=== PATIENT | female | born 1995 | race Caucasian/White ===

== ENCOUNTER 2023-06-07 16:46 | Outpatient (CLI) | payer OTHER, SELFPAY ==
--- NOTE | 2023-06-07 17:00 | US_ITS ---
Patient: APRIL EARL Facility:?[facility] R[facility] Patient ID:?[id number] Site Patient ID:?[id number]. Site :?1995 Study:?US-OB Pelvis DATING AND VIABILITY-06/07/2023 5:34:36 PM Ordering Physician:?YAKOV MUSTAFA Final Report: INDICATION: . TECHNIQUE: Ultrasound OB pelvis transvaginal. Real-time scales-scale, color flow and duplex Doppler imaging of the pelvis was performed. COMPARISON: None. FINDINGS: Uterus: Measures approximally 6 by 2 by 3 centimeters and is without cysts or masses. Cervix: Partially visualized, long and closed. Endometrium: 6 millimeter gestational sac is present. No pole is identified. Ovaries: The right ovary measures 4.1 x 3.3 x 3.8 centimeters. Simple cyst within the right ovary measures up to 3.8 centimeters. There is appropriate color flow and venous duplex Doppler waveforms to the right ovary. The left ovary measures 2.9 x 1.2 x 2.1 centimeters. There is appropriate color flow the left ovary. Free fluid: None. IMPRESSION: Intrauterine of approximately 5 weeks` gestation, viability is not confirmed. Recommend serial quantitative HCGs and follow-up pelvic ultrasound in 10-14 days. Dictated by Duane Singh MD @ 06/07/2023 6:17:47 PM Signed by:?Duane Singh MD @06/07/2023 6:17:47 PM (Electronic Signature)
== END 2023-06-07 16:47 | disposition home or self-care (01) ==
PROVIDERS: Visit Provider Physician Assistant
DX: Z34.91 Encounter for supervision of normal pregnancy, unspecified, first trimester (principal); Z3A.01 Less than 8 weeks gestation of pregnancy
CPT/HCPCS: 76817; 84702; 86850; 86900; 86901; 93976

== ENCOUNTER 2023-06-09 15:53 | Outpatient (CLI) | payer OTHER, SELFPAY | END 2023-06-09 15:54 | disposition home or self-care (01) | LOC: NFLDREF 06-24 13:35 | PROVIDERS: Visit Provider Physician Assistant | DX: Z34.90 Encounter for supervision of normal pregnancy, unspecified, unspecified trimester (principal) | CPT/HCPCS: 84702 ==

== ENCOUNTER 2023-06-22 12:06 | Outpatient (CLI) | payer OTHER, SELFPAY ==
--- NOTE | 2023-06-22 12:15 | US_ITS ---
Patient: APRIL EARL Facility:?[facility] R[facility] Patient ID:?[id number] Site Patient ID:?[id number]. Site :?1995 Study:?US-OB Pelvis OB TV-06/22/2023 12:42:30 PM Ordering Physician:MARIE JULY Final Report: INDICATION: Bleeding in early COMPARISON: 06/07/2023 TECHNIQUE: Real-time scales-scale imaging of the pelvis was performed. FINDINGS: Intrauterine gestational sac measures 8.7 millimeters, 5 weeks 5 days, not significantly changed. No pole or yolk sac. No subchorionic hemorrhage. Left ovary is normal in size. Simple right ovarian cyst again noted measuring 3.7 x 2.4 x 3.2 cm, previously measuring 3.8 cm. No ectopic . No pelvic free fluid. Uterus measures 7.2 cm in length and 3.1 x 4.3 cm in transverse dimensions. IMPRESSION: Intrauterine gestational sac is unchanged. No pole or yolk sac, consistent with blighted ovum/nonviable . Dictated by Gage Mondragon MD @ 06/23/2023 6:28:33 AM Signed by:?Gage Mondragon MD @06/23/2023 6:28:33 AM (Electronic Signature)
== END 2023-06-22 12:07 | disposition home or self-care (01) ==
LOC: US 12:07
PROVIDERS: Visit Provider Physician Assistant
DX: O20.9 Hemorrhage in early pregnancy, unspecified (principal); Z3A.01 Less than 8 weeks gestation of pregnancy
CPT/HCPCS: 76817

== ENCOUNTER 2023-07-06 09:22 | Outpatient (CLI) | payer OTHER, SELFPAY ==
--- NOTE | 2023-07-06 09:45 | US_ITS ---
Patient: APRIL EARL Facility:?[facility] Patient ID:?[id number] Site Patient ID:?[id number]. Site :?1995 Study:?US-Pelvis TV-07/06/2023 10:04:46 AM Ordering Physician:ELIHSA Final Report: INDICATION: Followup missed 2 weeks ago. TECHNIQUE: Transvaginal pelvic ultrasound. COMPARISON: 06/22/2023. FINDINGS: Uterus is anteverted and measures 7.4 x 3.0 x 3.6 cm. Endometrium is mildly heterogeneous. Minimal endometrial fluid. Normal endometrial stripe thickness of 5 mm. No evidence for retained products of conception. Both ovaries appear normal with normal color Doppler flow. No adnexal mass or free fluid. IMPRESSION: No sonographic evidence for retained products of conception. Dictated by Rafa Ramos MD @ 07/06/2023 12:19:10 PM Signed by:?Rafa Ramos MD @07/06/2023 12:19:10 PM (Electronic Signature)
== END 2023-07-06 09:23 | disposition home or self-care (01) ==
LOC: US 09:22
PROVIDERS: Visit Provider Obstetrics & Gynecology
DX: O02.1 Missed abortion (principal)
CPT/HCPCS: 76830

== ENCOUNTER 2023-07-06 10:21 | Outpatient (CLI) | payer OTHER, SELFPAY | END 2023-07-06 10:22 | disposition home or self-care (01) | LOC: NFLDREF 10:22 | PROVIDERS: Visit Provider Obstetrics & Gynecology | DX: O02.0 Blighted ovum and nonhydatidiform mole (principal) | CPT/HCPCS: 84702 ==

== ENCOUNTER 2023-07-13 09:25 | Outpatient (CLI) | payer OTHER, SELFPAY | END 2023-07-13 09:26 | disposition home or self-care (01) | LOC: NFLDREF 07-14 06:32 | PROVIDERS: PCP Obstetrics & Gynecology; Referring Provider Obstetrics & Gynecology; Visit Provider Obstetrics & Gynecology | DX: O02.0 Blighted ovum and nonhydatidiform mole (principal) | CPT/HCPCS: 84702 ==

== ENCOUNTER 2023-12-27 14:48 | Outpatient (CLI) | payer OTHER, SELFPAY ==
--- NOTE | 2023-12-27 15:00 | CRLHL7_ITS ---
For Patients: As a result of the Century Cures Act, medical imaging exams and procedure reports are released immediately into your electronic medical record. You may view this report before your referring provider. If you have questions, please contact your health care provider. INDICATION: First trimester scan, establish dates. COMPARISON: None. TECHNIQUE: Real-time scales-scale imaging of the pelvis was performed. FINDINGS: Sonographic imaging demonstrates a single living intrauterine gestation. The embryo demonstrates a regular cardiac rate measuring 178 beats per minute. The embryo`s crown-rump length measurement of 1.8 cm corresponds to a gestational age of 8 weeks 1 day with a sonographic due date of 08/06/2024. There is a normal-appearing yolk sac. There are no gross abnormalities noted within the embryo at this early state of development. The gestational sac has a normal appearance. There is no evidence of a perigestational hemorrhage. The amount of fluid within the sac appears appropriate for gestational age. The cervix is closed. The myometrium appears normal. The ovaries are of normal size. Corpus luteal cyst right ovary. There are no suspicious fluid collections noted in the cul-de-sac. IMPRESSION: Normal first trimester OB ultrasound exam. Gestational age calculated at 8 weeks 1 day with a sonographic due date of 08/06/2024. Dictated by Gage Mondragon MD @ 12/28/2023 12:05:05 PM (Electronically Signed)
== END 2023-12-27 14:49 | disposition home or self-care (01) ==
LOC: US 14:49
PROVIDERS: Visit Provider Physician Assistant
DX: Z34.91 Encounter for supervision of normal pregnancy, unspecified, first trimester (principal); Z3A.08 8 weeks gestation of pregnancy
CPT/HCPCS: 76817; 86592; 86703; 86704; 86706; 86762; 86787; 86803; 86850; 86900; 86901; 87086; 87340; 87491; 87591

== ENCOUNTER 2024-02-21 13:53 | Outpatient (CLI) | payer OTHER, SELFPAY | END 2024-02-21 13:54 | disposition home or self-care (01) | LOC: NFLDREF 13:57 | PROVIDERS: Visit Provider Obstetrics & Gynecology | DX: Z34.92 Encounter for supervision of normal pregnancy, unspecified, second trimester (principal); Z3A.16 16 weeks gestation of pregnancy | CPT/HCPCS: 81511 ==

== ENCOUNTER 2024-03-19 13:56 | Outpatient (CLI) | payer OTHER, SELFPAY ==
--- NOTE | 2024-03-19 14:00 | CRLHL7_ITS ---
For Patients: As a result of the Century Cures Act, medical imaging exams and procedure reports are released immediately into your electronic medical record. You may view this report before your referring provider. If you have questions, please contact your health care provider. INDICATION: 2nd trimester anatomical survey. TECHNIQUE: Ultrasound OB pelvis transabdominal. Real-time scales-scale imaging of the fetus was performed as well as color Doppler analysis of the umbilical artery. COMPARISON: None FINDINGS: Intrauterine gestation: Single. heart rate: Regular, 127 bpm. presentation: Cephalic. Placenta: Bilobed placenta with dominant posterior lobe and diminutive anterior lobe. There is a suspected vascular connection between the two lobes. Cord inserts into the anterior lobe. No evidence of previa Cervix: Closed measuring 4.3 cm Amniotic fluid: 4.3 cm deepest pocket. Biometry: Biparietal diameter: 4.5 cm, compatible with 19 weeks 4 days. Head circumference: 17.2 cm, compatible with 19 weeks 5 days. Abdominal circumference: 15.2 cm, compatible with 20 weeks 3 days. Femoral length: 3.1 cm, compatible with 19 weeks 5 days. EFW: 328.8 gm, 25.5 %. Estimated age by ultrasound: 20 weeks 0 days Estimated MARIA L by ultrasound: 09/05/2024 Anatomical Survey: 4 chamber heart: Visualized. Limited assessment of three-vessel trachea view. Stomach: Visualized. Kidneys: Visualized. Bladder: Visualized. Spine: Limited transverse view of the cervical spine. Otherwise no spinal abnormality is appreciated. Sacrum: Visualized. 4 extremities: Visualized. Cord insertion: Visualized. 3V cord: Visualized. Face: Visualized. Nose: Visualized. Lips: Visualized. Cerebellum: Visualized. Cisterna Magna: Visualized. Lateral ventricles: Visualized. IMPRESSION: 1. Single viable intrauterine measuring 328.8 grams in the 25.5th percentile. Estimated age by ultrasound is 20 weeks 0 days and MARIA L by ultrasound is 09/05/2024 2. Bilobed placenta with dominant posterior lobe and diminutive anterior lobe. There is a suspected vascular connection between the two lobes. Cord inserts into the anterior lobe. 3. Limited assessment of the transverse cervical spine and three-vessel trachea view. Otherwise, no intrinsic abnormalities noted on anatomic survey. Dictated by Dia Interiano MD @ 03/20/2024 11:30:03 AM (Electronically Signed)
== END 2024-03-19 13:57 | disposition home or self-care (01) ==
LOC: US 13:57
PROVIDERS: Visit Provider Obstetrics & Gynecology
DX: Z34.92 Encounter for supervision of normal pregnancy, unspecified, second trimester (principal); Z3A.20 20 weeks gestation of pregnancy
CPT/HCPCS: 76805

== ENCOUNTER 2024-05-14 11:01 | Outpatient (CLI) | payer OTHER, SELFPAY | END 2024-05-14 11:02 | disposition home or self-care (01) | LOC: NFLDREF 05-16 09:12 | PROVIDERS: Visit Provider Obstetrics & Gynecology | DX: Z34.93 Encounter for supervision of normal pregnancy, unspecified, third trimester (principal); Z3A.28 28 weeks gestation of pregnancy | CPT/HCPCS: 86592 ==

== ENCOUNTER 2024-06-14 17:08 | Outpatient (CLI) | payer OTHER, SELFPAY ==
[2024-06-14 17:16] VITALS: PULSE 85; O2SAT 98
[2024-06-14 17:21] VITALS: PULSE 75; O2SAT 98
[2024-06-14 17:25] VITALS: BP 112/70; PULSE 73; TEMP 36.7
--- NOTE | 2024-06-14 19:53 | PC.OBNST ---
NST Note NST Note Start: 06/14/24 17:17 Freq: ONCE Status: Active Protocol: Document 06/14/24 19:18 FJZ (Rec: 06/14/24 19:52 FJZ [id number]) NST Note 2 Para (# of births) 0 EDC 08/03/24 Gestational Age In Weeks & Days 32 Weeks & 6 Days Patient Presented with Complaint(s) of Observation after an injury If Observation after an injury, describe Pt stated her 60lb dog jumped off her belly around 5:00pm. Reactive Yes RN Walt Suarez RN Date 06/14/24 Reactive Yes JORDAN Farfan RN Date 06/14/24 OB NST charge Yes Complete NST Note via Write Note Yes The provider's electronic signature indicates the NST is reactive/appropriate for gestational age. *Note to provider: If an addendum is required, open the patient's chart and click on the note under the Nurse/Allied Health tab.
== END 2024-06-14 19:18 | disposition home or self-care (01) ==
LOC: OB OUT 17:10 → OB 17:10
PROVIDERS: Visit Provider Obstetrics & Gynecology
DX: O26.893 Other specified pregnancy related conditions, third trimester (principal); S39.91XA Unspecified injury of abdomen, initial encounter; Z3A.32 32 weeks gestation of pregnancy
CPT/HCPCS: 59025; G0463

== ENCOUNTER 2024-06-25 13:57 | Outpatient (CLI) | payer OTHER, SELFPAY ==
--- NOTE | 2024-06-25 14:00 | CRLHL7_ITS ---
For Patients: As a result of the Century Cures Act, medical imaging exams and procedure reports are released immediately into your electronic medical record. You may view this report before your referring provider. If you have questions, please contact your health care provider. LMP: 10/28/2023. MARIA L by LMP: 08/03/2024. GA: 34w, 3d. Single. INDICATION: Bi-lobed placenta. CERVIX: Not visualized. POSITIONING: Vertex. AMNIOTIC FLUID: 4.1 cm SDP. PLACENTA: Technique: Transabdominal. PLACENTA POSITION: Posterior right wall. heart rate: 131 bpm. Biometry: BPD: 8.3 cm. 33w, 2d, 19 percent. HC: 29.9 cm. 33w, 1d, <3 percent. AC: 31.5 cm. 35w, 3d, 82 percent. FL: 6.3 cm. 32w, 3d, 5.1 percent. FL/AC ratio: 19.89 percent. HC/AC ratio: 0.95. EFW: 2369 g. Weight: 5 lbs, 4 oz. age by this US: 33w, 4d. MARIA L by this US: 08/09/2024. Percentile by MARIA L: 37 percent. IMPRESSION: 1. Sonographic gestational age 33 weeks 4 days and sonographic due date 08/09/2024. Sonographic age is 6 days behind the clinical age. 2. Estimated weight 37th percentile. Abdominal circumference 82nd percentile. Head circumference less than 3rd percentile. Femur length 5th percentile. Gaeg Mondragon M.D. Diagnostic Radiologist [email or web address] LOCO/dotty / bM/Dictated by: Gage Mondragon MD @ 06/25/2024 3:45:00 PM (Electronically Signed)
== END 2024-06-25 13:58 | disposition home or self-care (01) ==
LOC: US 13:58
PROVIDERS: Visit Provider Obstetrics & Gynecology
DX: Z34.93 Encounter for supervision of normal pregnancy, unspecified, third trimester (principal); Z3A.34 34 weeks gestation of pregnancy
CPT/HCPCS: 76816

== ENCOUNTER 2024-07-09 13:17 | Outpatient (CLI) | payer OTHER, SELFPAY ==
[2024-07-10 20:43] LABS: Strep B DNA Probe Negative (Negative)
[2024-07-10 21:11] LABS: Strep B Susceptibility Needed? No
== END 2024-07-09 13:18 | disposition home or self-care (01) ==
LOC: NFLDREF 13:17
PROVIDERS: Visit Provider Obstetrics & Gynecology
DX: Z34.83 Encounter for supervision of other normal pregnancy, third trimester (principal); N89.8 Other specified noninflammatory disorders of vagina
CPT/HCPCS: 87081; 87653

== ENCOUNTER 2024-07-30 13:09 | Outpatient (CLI) | payer OTHER, SELFPAY ==
--- NOTE | 2024-07-30 14:00 | CRLHL7_ITS ---
For Patients: As a result of the Century Cures Act, medical imaging exams and procedure reports are released immediately into your electronic medical record. You may view this report before your referring provider. If you have questions, please contact your health care provider. OB ULTRASOUND LMP: 10/28/2023. MARIA L by LMP: 08/03/2024. GA: 39 w, 3 d. Single. Comparison: 06/25/2024, 04/24/2024, 03/19/2024. INDICATION: Growth (size less than dates). TECHNIQUE: Real time grayscale imaging of the fetus was performed. Transabdominal. CERVIX: Not visualized. POSITIONING: Vertex. AMNIOTIC FLUID: 4.6 cm. SDP (N: greater than 2 x 1 cm) PLACENTA: Technique: Transabdominal. PLACENTA POSITION: Bi-lobed. Anterior, Posterior, right wall. DOPPLER: heart rate: 137 bpm. BIOMETRY: BPD: 9.1 cm. 36 w, 5 d, 17.8 percent. HC: 32.4 cm. 36 w, 4 d, <3 percent. AC: 34.7 cm. 38 w, 5 d, 52.2 percent. FL: 6.8 cm. 34 w, 6 d, <3 percent. FL/AC ratio: 19.5 percent. HC/AC ratio: 0.9. EFW: 3181 g. Weight: 7 lbs, 0 oz. age by this US: 36 w, 5 d. MARIA L by this US: 08/22/2024. Percentile by MARIA L: 22.7 percent. IMPRESSION: 1. Sonographic gestational age 36 weeks 5 days and sonographic due dated 08/22/2024. Sonographic age is 19 days behind the clinical age. 2. Estimated weight 23rd percentile. Abdominal circumference 52nd percentile. 3. Head circumference and femur length less than 3rd percentile. Gage Mondragon M.D. Diagnostic Radiologist [email or web address] LOCO/radha garcia/Dictated by: Gage Mondragon MD @ 07/30/2024 3:57:00 PM (Electronically Signed)
== END 2024-07-30 13:10 | disposition home or self-care (01) ==
LOC: US 13:09
PROVIDERS: Visit Provider Obstetrics & Gynecology
DX: O36.5930 Maternal care for other known or suspected poor fetal growth, third trimester, not applicable or unspecified (principal); Z3A.39 39 weeks gestation of pregnancy
CPT/HCPCS: 76816

== ENCOUNTER 2024-08-06 21:47 | Inpatient (IN) | payer OTHER, SELFPAY ==
[2024-08-06] VITALS (17 sets, daily range): BP systolic 126; BP diastolic 67; PULSE 80–98; RESP 17; TEMP 36.6–36.8; O2SAT 91–100; BMI 29.9
[2024-08-06 21:39] LABS: Amnisure Rom* POSITIVE
--- NOTE | 2024-08-06 22:37 | P.LDBA_ITS ---
Subjective History of Present Illness Time Seen by Provider: 22:37 Date Seen: 08/06/24 Narrative: Patient is being admitted to Labor and Delivery for spontaneous labor. She is a 28 year old at 40.3 weeks gestation. Her full history and physical was dictated by Dr. ANGUIANO on 07/16/24. Please see this for details. She was seen in clinic today and had a membrane sweep. Afterwards, she pumped and noted of pop and a gush of fluid during pumping at 9pm. After that, her contractions of increased to every 2 minutes. Active movement. Denies vaginal bleeding or abnormal vaginal discharge. AmniSure positive on admission. Specific Issues/Plans Partner: Jimmie Baby: Boy! H&P: by SILVIO on 07/16/2024. # History of partial cleft palate and bilobed uvula Lakshmi recommended level 2 US at 28 weeks, orders placed #Bilobed placenta - anterior and posterior with ? bridging vessels f/u formal radiology read: suspected intervening vessels 28 week growth US (LVL 2) 34 week growth US: ordered on 05/28/24, final report pending [] # rubella nonimmune MMR # Limited assessment of the transverse cervical spine and three-vessel trachea view Will have completion of anatomy scan with MFM at first availability #[place] aneuploidy and carrier screening performed 01/10/24: low risk for aneuploidy, male. Carrier screen negative. # Anemia. Hgb 10.8 at 28wks on 05/14/2024 Ferrous sulfate 1 tab QOD w/ meal. # Eczema: 0.5% triamcinolone cream TID prn Imaging: - FAS 03/19: Vertex, bilobed placenta with dominant posterior lobe and diminutive anterior lobe. There is suspected vascular connection between the 2 lobes. Cord inserts into the anterior lobe. No previa. EFW 25%. Limited 3 vessel trachea view in the heart. Limited transverse view of the cervical spine. Otherwise normal survey. LVL 2: 04/24/2024: Vtx, post placenta w/o previa, 3 vessel cord. EFW 23%. Limited spine and left hand otherwise normal anatomy survey. No comment on placenta. Patient declined follow up scan for hand and spine imaging. 06/25/24: cephalic, SDP 4.1 cm, EFW 37%, BPD 19%, HC<3%, AC 82%, FL 5.1% 07/30: Cephalic. EFW 3181g at 23%ile, AC 52%ile. FL and HC <3%ile, normal level 2 previously. COVID: 01/24/2024 Flu: 01/24/2024 Tdap: 05/28/24 32 week mental health: PGQ 5, no acute concerns 34 week HGB: 06/25/24 36 week GBS: negative 07/09/24 OB - Problem Based A/P Additional Plan (1) Bilobed placenta: Status: Acute (2) : Status: Acute (3) Spontaneous onset of labor: Status: Acute Plan - SROM at 9pm - Plan: Expectant management per patient's request. Will recheck in 6 hours or sooner if clinically indicated. - pain control: Will eventually want an epidural. Reassured patient that she can request epidural at any point. - NST: cat II due to periods of intermittent minimal variability and small spontaneous deceleration that spontaneously resolved. Will proceed with continuous monitoring. OB Exam Physical Exam Vital signs: Temp Pulse Resp BP Pulse Ox 97.8 F 80 17 126/67 98 08/06/24 21:58 08/06/24 21:15 08/06/24 21:10 08/06/24 21:15 08/06/24 21:36 Narrative: Physical exam: General: No acute distress Psych: Alert and oriented x3, full affect HEENT: Normocephalic, atraumatic Lungs: Labor breathing with contractions. Neuro: No focal deficit. Mentating appropriately Pelvic exam: /-1 per RN
[2024-08-06 23:30] LABS: Basophils Percent Auto 0.2 % (0.0-3.0); Eosinophils Percent Auto 0.4 % (0.0-7.0); Hematocrit* 34.1 % (33.0-51.0); Immature Granulocytes Pct Auto 1.4 %; Lymphocytes Percent Auto 15.5 % (20-44); Mean Corpuscular HGB Conc 35 gm/dL (32-36); Mean Corpuscular Hemoglobin 30 pg (26-34); Mean Corpuscular Volume 85 fL (80-100); Monocytes Percent Auto 5.2 % (0.0-11.0); Neutrophils Percent Auto 77.3 % (42.0-72.0); Platelet Count* 188 K/uL (140-440); RDW Coefficient of Variation % 12.5 % (11.5-15.5); Red Blood Count* 4.03 m/uL (4.00-5.20); White Blood Count* 13.07 K/uL (4.50-11.00)
[2024-08-06] MEDS: LACTATED RINGERS 1000 ML 1,000 ML 1120 ML IV (23:33)
[2024-08-06 23:41] LABS: Slide Review Reflex No
[2024-08-07] VITALS (62 sets, daily range): BP systolic 96–144; BP diastolic 52–76; PULSE 75–142; RESP 16–17; TEMP 36.6–37.4; O2SAT 85–100
[2024-08-07] MEDS: LIDOCAINE 2% (PF) 5 ML VIAL EPIDURAL (00:10)
[2024-08-07] MEDS: ROPIVACAINE 0.2% 100 ml 100 ML 12 MG EPIDURAL (00:10)
--- NOTE | 2024-08-07 00:21 | PM.ANBPRC ---
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 Marital status: . Church/cultural needs: no. Chemical or radiation exposure: no. Pre- tobacco use: no. Pre- alcohol use: no. Current tobacco use: no. Current alcohol use: no. Recreational drug use: no. Dietary restrictions: no. Blood transfusion acceptable in an emergency: yes. PSYCHOSOCIAL HISTORY: History of depression or currently depressed: Denies. Current or past physical, emotional, or sexual mistreatment: Denies. Problems that will make it hard to make it to appointments: Denies. What is your current living situation?: I presently have a place to live Problems where you live: no known problems In the past 12 months, utilities in danger of being shut off: no In past 12 months, lack of transportation kept you from medical appts, meetings, work, or getting things needed for daily living: no In the past 12 mos, have been you worried that your food would run out before you had money to buy more?: never true In the past 12 mos, the food you bought just didn't last and you didn't have money to buy more?: never true Smoking Status: Never smoker How often does anyone, including family, friends and others, physically hurt you: never How often does anyone, including family, friends and others, insult or talk down to you: never How often does anyone, including family, friends and others, threaten you with harm: never How often does anyone, including family, friends and others, scream or curse at you: never Meds Home Medications and Allergies Home Medications ?Medication ?Instructions ?Recorded ?Confirmed ?Type acetaminophen 500 mg capsule 500 mg PO QID PRN 12/27/23 08/06/24 History docusate sodium 100 mg capsule 100 mg PO QDAY 12/27/23 08/06/24 History (Colace) dn-gef-dzreq 180 mcg-om3 32.5 2 tab PO DAILY 02/21/24 08/06/24 History [id number]-xoy-other [id number] chew tablet ( Gummies (DHA-EPA)) ferrous sulfate 325 mg (65 mg 325 mg PO Q OTHER DAY 05/28/24 08/06/24 History iron) tablet Allergies Allergy/AdvReac Type Severity Reaction Status Date / Time No Known Drug Allergies Allergy Verified 08/06/24 21:33 Results Labs Labs: Laboratory Results - last 24 hr 08/06/24 08/06/24 21:19 23:25 WBC 13.07 H RBC 4.03 Hgb 12.0 Hct 34.1 MCV 85 MCH 30 MCHC 35 RDW Coeff of Yosvany 12.5 Plt Count 188 Neut % (Auto) 77.3 H Lymph % (Auto) 15.5 L Bracken % (Auto) 5.2 Eos % (Auto) 0.4 Baso % (Auto) 0.2 Neut # (Auto) 10.10 H Lymph # (Auto) 2.00 Bracken # (Auto) 0.70 Eos # (Auto) 0.10 Baso # (Auto) 0.00 Abs Immat Gran (auto) 0.20 Imm/Tot Granulo (auto) 1.4 Membrane Rupture POSITIVE Vital Signs Vital Signs: Last Vital Signs Temp 99 F 08/07/24 00:19 Pulse 80 08/07/24 00:19 Resp 17 08/06/24 21:10 BP 113/69 08/07/24 00:19 Pulse Ox 98 08/07/24 00:20 Weight: 71.758 kg Height: 154.94 cm Anesthesia Procedures Epidural Insertion Patient Location: OB Start Time: 23:30 Stop Time: 00:30 Start Date: 08/06/24 Stop Date: 08/07/24 Reason for Block: procedure for pain Patient Position: sitting Performed By: Bella Quintero Preanesthetic Checklist: IV checked, site marked, risks and benefits discussed, monitors and equipment checked, pre-op evaluation, timeout performed and anesthesia consent Prep: chlorhexidine gluconate Monitoring: blood pressure monitoring, continuous pulse oximetry and heart rate Approach: midline Vertebral Space: lumbar (1-5) Epidural Technique: ATUL saline Needle Type: Tuohy needle Injection Technique: continuous catheter Needle gauge: 17 Needle Length (cm): 10 cm Needle Insertion Depth (cm): 6 Catheter Gauge: 19 Catheter Type: multi-orifice Catheter at skin depth (cm): 16 Test Dose Result: negative and lidocaine 1.5% with epinephrine 1 to 200,000
[2024-08-07] MEDS: PHENYLEPHRINE 100 MCG/ML SYRINGE IVP (00:37)
[2024-08-07] MEDS: LACTATED RINGERS 1000 ML 1,000 ML 1125 ML IV (02:13)
[2024-08-07] MEDS: ONDANSETRON 2 MG/ML inj 4 MG IV (02:32)
[2024-08-07] MEDS: OXYTOCIN 30 unit/500 ML in NS 30 UNIT/500 ML BAG 300 UNIT IVPB (05:50)
[2024-08-07] MEDS: ACETAMINOPHEN 500 MG TABLET 1000 MG PO ×3 (06:13→21:00)
--- NOTE | 2024-08-07 06:13 | W.PM.VAGDEL1 ---
Procedure Delivery date: 08/07/24 Procedure Done: Global Narrative: The patient is a 28 year-old G 2 P 0010 admitted on 08/06/2024 at 40 and for/7 weeks gestation for spontaneous labor/SROM. GBS negative Labor Analgesia: Epidural home Pitocin: Only for active management of 3rd stage SROM/AROM: 08/06/2024 at 2100, with clear fluid Labor onset: 08/06/2024 at 2100 Complete: 08/07/2024 at 0437 Pushin08/07/2024 [place] 90448 heart tones during second stage were cat II with intermittent variable and late decelerations that self resolved after contractions. + acceleration and moderate variability throughout. At 0548 a viable male infant delivered in vertex OA presentation over intact via spontaneous vaginal delivery. The infant's body was delivered in the usual manner without difficulty. The was placed on maternal abdomen. The cord was clamped and cut after a 30-60 second delay. The nose and mouth were bulb suctioned. Infant weight: pending. 8 at 1 minute and 8 at 5 minutes. Shoulder dystocia: No. Nuchal cord: No Placenta delivered spontaneously and complete at 0553 with a 3-vessel cord. Placenta examined and noted to be complete. Placenta was sent to pathology due to known bilobed placenta. Accessory lobe was noted gross examination of the placenta. Appeared intact. The cervix and vagina were inspected for lacerations, and first-degree perineal was noted. Laceration(s): First-degree, repaired with 2-0 Vicryl in a continuous manner. Complications: None Estimated blood loss: 50 mL Cord gases: Obtained due to category 2 strip during the majority of labor. Responded to resuscitation with position changes and IV fluid boluses. Reassuringly, patient was progressing appropriately. Strip improved with pushing. Of note, patient had 2 mild range in blood pressures greater than 4 hours apart intrapartum which meets diagnosis of gestational hypertension. Pre E labs sent and pending at the time of this note. Will continue to monitor her blood pressures. Sponge and needles counts are correct. Mother and were stable at the time of this note.
[2024-08-07 06:38] LABS: Hematocrit* 31.6 % (33.0-51.0); Hemoglobin* 10.9 gm/dL (12.0-16.0); Mean Corpuscular HGB Conc 35 gm/dL (32-36); Mean Corpuscular Hemoglobin 30 pg (26-34); Mean Corpuscular Volume 86 fL (80-100); Platelet Count* 163 K/uL (140-440); Red Blood Count* 3.68 m/uL (4.00-5.20); White Blood Count* 14.85 K/uL (4.50-11.00)
[2024-08-07 06:42] LABS: Slide Review Reflex No
[2024-08-07 06:58] LABS: Alanine Aminotransferase* 18 U/L (4-35); Aspartate Amino Transferase* 26 U/L (12-35); Blood Urea Nitrogen* 9 mg/dL (5-24); Creatinine* 0.7 mg/dL (0.5-1.5); Est. Creatinine Clearance* 88.68; Estimated Glomerular Filt Rate 119 ml/min
[2024-08-07] MEDS: IBUPROFEN 600 MG TABLET PO ×3 (08:58→21:00)
[2024-08-07] MEDS: DOCUSATE SODIUM 100 MG CAPSULE PO (08:58)
--- NOTE | 2024-08-07 13:26 | PM.ANPOST ---
Post Anesthesia Note Post Anesthesia Note Patient seen: Inpatient Respiratory Status: adequate Cardiovascular Status: adequate Mental Status: baseline Pain: adequate Temp: baseline Anesthetic awareness: N/A Complications: none Follow care: none
[2024-08-08 04:03] VITALS: BP 106/70; PULSE 82; RESP 16; TEMP 36.6; O2SAT 97
[2024-08-08] MEDS: ACETAMINOPHEN 500 MG TABLET 1000 MG PO (04:05)
[2024-08-08] MEDS: IBUPROFEN 600 MG TABLET PO (04:05)
[2024-08-08 06:30] LABS: Hemoglobin* 10.8 gm/dL (12.0-16.0)
--- NOTE | 2024-08-08 07:38 | P.DS_ITS ---
DS: Providers Provider Date Seen: 08/08/24 Date of admission: 08/06/24 21:47 Primary care physician: Not a Local Provider Admitting Clinician: Mary Carmen Goetz MD Attending Physician on discharge: Amber Beatty CNM DS: Diagnosis Discharge Diagnosis (1) care and examination immediately after delivery: Status: Acute (2) Lactating mother: Status: Acute Exam Narrative: Exam Narrative: GENERAL APPEARANCE:? normal affect, alert, no distress MOOD:? appropriate CHEST:? clear to auscultation HEART:? regular rate and rhythm ABDOMEN:? soft, non-tender the uterine fundus is 1 below Umbilicus, Midline and is appropriate for the stage of recovery. PERINEUM:? mild edema of the perineum, there is a Perineal Laceration,?1st degree, that is healing well. EXTREMITIES:? normal and no edema Const: Vital Signs, click to edit/add: Vital Signs - 24 hr 08/07/24 07:41 08/07/24 07:56 08/07/24 08:11 Temperature Pulse Rate 78 81 76 Pulse Rate [Pulse Oximeter] Respiratory Rate Blood Pressure 115/62 118/69 117/66 Blood Pressure [Le ft Arm] Pulse Oximetry Oxygen Delivery Me thod 08/07/24 11:20 08/07/24 15:20 08/07/24 19:54 Temperature 98.1 F 98.1 F 98.1 F Pulse Rate Pulse Rate [Pulse Oximeter] 79 85 77 Respiratory Rate 16 17 16 Blood Pressure Blood Pressure [Le ft Arm] 101/61 109/70 109/66 Pulse Oximetry 96 98 98 Oxygen Delivery Me thod Room Air Room Air Room Air 08/07/24 22:14 08/08/24 04:03 Temperature 98 F 97.9 F Pulse Rate Pulse Rate [Pulse Oximeter] 75 82 Respiratory Rate 16 16 Blood Pressure Blood Pressure [Le ft Arm] 102/64 106/70 Pulse Oximetry 97 97 Oxygen Delivery Me thod Room Air Room Air Documenting provider has reviewed patient's vital signs: yes OB - DS: Summary Hospital Course Hospital Course: Arlet is a 28 y.o. G 2 P 1 who was admitted to [facility] for spontaneous onset of labor with SROM. ?She had a NVD that was uncomplicated. The patient feels well. ?The pain is well controlled with current medications. ?She has no new complaints. ?She is breast feeding and reports things are going well. the patient has done well.? Vitals have been stable.? She has remained afebrile.? Has a good appetite, is tolerating a general diet. ?She is voiding without difficulty.? She is passing gas and has not had a bowel movement.? She is ambulating and denies any dizziness.? Has small amount of rubra lochia. She is planning oral contraception for prevention. Problems: none Peripartum Data Infant delivery method: Vaginal Laceration description: Perineal - 1st Degree complications: none Gender: Male Infant Discharge Plan: Home Status at Discharge Functional status at discharge: independent ambulation Overall status at discharge: patient is progressing back to baseline Time Spent with Patient Time attestation: Total time spent providing and/or coordinating discharge services: Time spent: Less than 30 minutes Discharge Plan Discharge Disposition: Home, Self-Care Date of Admission: 08/06/24 21:47 Attending Provider on Discharge: Amber Beatty Primary Care Provider: Provider,Not a Local Condition: Stable Anticipated Discharge Date/Time: 08/08/24 12:00 Discharge Medications: New ibuprofen 600 mg Tablet 600 mg PO Q6H PRNQty: 60 0RF docusate sodium 100 mg Capsule 100 mg PO DAILY Qty: 0 0RF acetaminophen 500 mg Tablet 1,000 mg PO Q6H PRNQty: 0 0RF Continued Gummies (DHA-EPA) 180 mcg-32.5mg- 25 mg-7.5 mg tablet,chewable 2 tab PO DAILY acetaminophen 500 mg capsule 500 mg PO QID PRN docusate sodium [Colace] 100 mg capsule 100 mg PO QDAY triamcinolone acetonide 0.5 % cream 1 applic topical TID Qty: 30 6RF ferrous sulfate 325 mg (65 mg iron) tablet 325 mg PO Q OTHER DAY Discharge Orders: Discharge Order (Routine); Ordered 08/08/24 Ordered By: Amber Beatty Patient Education: OB Over the Counter Medication Information, OB Vaginal/Breast Feeding Additional Instructions: Discharge instructions were reviewed with the patient including signs and symptoms of infection and home going medications Nothing vaginally for 6 weeks: no tampons or intercourse Off Work or School for 6 weeks [facility] for [facility] BP check?in 3-5 days * Call with BP greater than or equal to 160/110 or sustained BP of 140/90 * Severe headache that doesn't improve after taking medications * Changes in vision, including temporary loss of vision, blurred vision, and/or light sensitivity * Upper abdominal pain (usually under ribs on the right side) 2-week visit: discuss feeding concerns, review control options and screen for anxiety/depression. 6-week visit for an annual exam. consultation services are available to all mothers and babies for the first year after delivery.? To make an appointment, please call [phone]. Activity Level: Activity as Tolerated Discharge Diet: Regular Follow Up App[facility]ments: [facility] [Provider Group] Forms: Mesh Koreath Info Instructions
[2024-08-08 07:42] VITALS: BP 113/75; PULSE 71; RESP 16; TEMP 36.5; O2SAT 97
[2024-08-08] MEDS: DOCUSATE SODIUM 100 MG CAPSULE PO (08:44)
[2024-08-08] MEDS: MEASLES,MUMPS,RUBELLA VACC/PF 1 DOSE INJ 1 EACH SUBCUT (12:10)
[2024-08-09 09:37] LABS: Rapid Plasma Reagin (RPR) Non Reactive (Non Reactive)
== END 2024-08-08 12:20 | disposition home or self-care (01) | DRG 807 ==
LOC: OB OUT 22:13 → OB 22:13
PROVIDERS: Admitting Provider Obstetrics & Gynecology; Visit Provider Obstetrics & Gynecology
DX: O42.02 Full-term premature rupture of membranes, onset of labor within 24 hours of rupture (principal); Z37.0 Single live birth; Z3A.40 40 weeks gestation of pregnancy; O99.02 Anemia complicating childbirth; D64.9 Anemia, unspecified; O43.193 Other malformation of placenta, third trimester; O76 Abnormality in fetal heart rate and rhythm complicating labor and delivery; Z87.730 Personal history of (corrected) cleft lip and palate
CPT/HCPCS: 01967; 36415; 82565; 84112; 84450; 84460; 84520; 85018; 85025; 85027; 86592; G0463; A9270; J2405; J2795; J7120